=== PATIENT | male | born 1985 | race American Indian/Alaskan Native ===

== ENCOUNTER 2017-10-05 19:30 | Emergency (ER) | payer OTHER ==
[2017-10-05 20:12] VITALS: BP 132/87
[2017-10-05] MEDS ORDERED: MOTRIN PO ONE (20:13)
--- NOTE | 2017-10-05 21:41 | XRay Report ---
FINAL REPORT PROCEDURE: XR FOOT 3+V LT TECHNIQUE: LEFT foot radiographs, AP, lateral, and oblique views. CPT 86738 HISTORY: left foot redness and swelling COMPARISON: No prior studies are available for comparison. FINDINGS: Fracture (s) and/or Dislocation(s): None . Alignment: Normal . Joint space(s): Normal . Soft tissues: Mild degree soft tissue swelling. Bone mineralization: Is noted. Foreign bodies: None . Calcaneal spurring: None . IMPRESSION: No evidence of any bony or joint abnormality..
[2017-10-05] MEDS ORDERED: XYLOCAINE 1% MPF 5 mL ONE (23:51)
[2017-10-05] MEDS ORDERED: XYLOCAINE 1% MPF 5 mL INFILTRATI ONE (23:54)
[2017-10-05] MEDS ORDERED: BACTRIM DS PO ONE (23:59)
--- NOTE | 2017-10-06 00:07 | Emergency Department Report ---
HPI - General Chief Complaint: Extremity Injury, Lower Time Seen by Provider: 10/05/17 23:42 - HPI HPI: 32-year-old -Omani male presents to the emergency department with complaint of some redness, swelling and pain to the inside of the left foot. He also says he saw a small amount of purulent drainage. The patient has had this exact infection multiple times in the past. He has not taken anything for her symptoms prior presentation. Recent travel or sick contacts. His primary care physician is Dr. Jc Maier. ED Past Medical Hx - Past Medical History Hx Headaches / Migraines: Yes Additional medical history: Irregular Heartbeat - Surgical History Past Surgical History?: No - Social History Smoking Status: Current Every Day Smoker Substance Use Type: None - Medications Home Medications: Home Medications Medication Instructions Recorded Confirmed Last Taken Type Butalbit/Acetamin/Caff/Codeine 1 each PO Q6H PRN #20 capsule 04/26/13 Unknown Rx [Fioricet-Cod 73-902-10-30 Cap] HYDROcodone/ACETAMINOPHEN [Vader 1 each PO Q6H PRN #10 tablet 10/06/17 Unknown Rx 5-325 Tablet] Sulfamethoxazole/Trimethoprim 1 each PO BID #14 tablet 10/06/17 Unknown Rx [Bactrim DS TAB] ED Review of Systems ROS: Stated complaint: INSECT BITE LEFT FOOT Other details as noted in HPI Comment: All other systems reviewed and negative Constitutional: denies: chills, fever Eyes: denies: eye pain, eye discharge, vision change ENT: denies: ear pain, throat pain Respiratory: denies: cough, shortness of breath, wheezing Cardiovascular: denies: chest pain, palpitations Gastrointestinal: denies: abdominal pain, nausea, diarrhea Genitourinary: denies: urgency, dysuria Musculoskeletal: joint swelling, arthralgia Skin: change in color. denies: pruritus Neurological: denies: headache, weakness, paresthesias Physical Exam - Physical Exam Vital Signs: Vital Signs 10/05/17 10/05/17 19:46 20:06 Temperature 98.7 F 98.7 F Pulse Rate 97 H 97 H Respiratory 20 16 Rate Blood Pressure 132/83 132/87 O2 Sat by Pulse 98 98 Oximetry Physical Exam: GENERAL: The patient is well-developed well-nourished. HENT: Normocephalic. Atraumatic. Patient has moist mucous membranes. EYES: Extraocular motions are intact. NECK: Supple. No meningitic signs are noted. There is no adenopathy noted. CHEST/LUNGS: Clear to auscultation. There is no respiratory distress noted. HEART/CARDIOVASCULAR: Regular. There is no tachycardia. There is no murmur. SKIN: There was some erythema, mild localized swelling, and fluctuance to the medial midfoot, just anterior and inferior to the ankle. NEURO: The patient is awake, alert, and oriented. The patient is cooperative. The patient has no focal neurologic deficits. The patient has normal speech. MUSCULOSKELETAL: Tenderness to palpation to the left medial midfoot. There is no limitation range of motion. ED Course Vital Signs 10/05/17 10/05/17 19:46 20:06 Temperature 98.7 F 98.7 F Pulse Rate 97 H 97 H Respiratory 20 16 Rate Blood Pressure 132/83 132/87 O2 Sat by Pulse 98 98 Oximetry - I & D Left Foot Type of Procedure: Simple Site: left medial mid foot Blade Size: 11 I & D Procedure: betadine prep, sterile drapes applied, sterile dressing applied Progress: A 0.5 cm incision was made with 11 blade scalpel after 1 mL of 1% lidocaine without epinephrine was placed. There was no significant purulent discharge. There is a very mild amount of venous bleeding that stopped with pressure. The patient tolerated the procedure well. No obvious complications. ED Medical Decision Making - Radiology Data Radiology results: image reviewed interpreted by me: X-ray of the left foot does not show any fracture, dislocation or any signs of osteomyelitis. - Medical Decision Making Patient has some pain and swelling to the left medial foot. He definitely has some erythema with concern for cellulitis. There is some area of fluctuance so he had some local anesthesia with lidocaine and a small incision was made. There was not much purulent discharge and certainly not enough area for any packing. The area was cleaned with Betadine prior to this procedure. He will be placed on antibiotics and pain medication. He has good follow-up with a primary care physician but has also been given podiatry. He will return to ER with any worsening of symptoms or any acute distress. - Differential Diagnosis cellulitis, abscess, cyst, osteomyelitis Critical Care Time: No Critical care attestation.: If time is entered above; I have spent that time in minutes in the direct care of this critically ill patient, excluding procedure time. ED Disposition Clinical Impression: Foot abscess, left, Cellulitis of foot Disposition: TO HOME OR SELFCARE Is pt being admited?: No Condition: Stable Instructions: Cellulitis (ED), Abscess (ED) Additional Instructions: Please follow-up with your primary care physician in the next few days. I have also given referral for a local legislative correspondent, Dr. Bunch. Take the antibiotics as prescribed. Return to the emergency Department with any worsening of your symptoms or any acute distress. You have been prescribed a medication that is sedating and therefore should not be taken prior to driving, working, and responsible for children and in no way should be mixed with alcohol of any quantity. Prescriptions: HYDROcodone/ACETAMINOPHEN [Vader 5-325 Tablet] 1 each PO Q6H PRN #10 tablet PRN Reason: Pain , Severe (7-10) Sulfamethoxazole/Trimethoprim [Bactrim DS TAB] 1 each PO BID #14 tablet Referrals: PAMELA BUNCH DPM [Staff Physician] - SHAISTA JC MAIER MD [Staff Physician] - SHAISTA Forms: Work/School Release Form(ED) Time of Disposition: 00:07
== END 2017-10-06 00:10 | disposition home or self-care (01) ==
LOC: ED 19:30
DX: L02.612 Cutaneous abscess of left foot (principal); L03.116 Cellulitis of left lower limb; G43.909 Migraine, unspecified, not intractable, without status migrainosus; F17.200 Nicotine dependence, unspecified, uncomplicated

== ENCOUNTER 2017-12-05 13:46 | Emergency (ER) | payer SELFPAY ==
--- NOTE | 2017-12-05 20:00 | Emergency Department Report ---
ED General Adult HPI - General Chief complaint: Extremity Injury, Lower Stated complaint: FOOT INFECTION Time Seen by Provider: 12/05/17 19:41 Source: patient Mode of arrival: Ambulatory Limitations: No Limitations - History of Present Illness Initial comments: Patient 32-year-old female male who presents for recurrent left foot cellulitis states he worsen wet environment his foot keeps getting infected usually treated with Bactrim and hydrocodone this is a recurring concern the last 10 years patient states unable to see podiatry due to finances pain today is 3/10 to third and fourth toe left mild erythema sounds are distended per patient is no fevers no chills no broken skin no bleeding blisters or open sores Onset/Timin -: days(s) Location: lower extremity Radiation: non-radiation Severity scale (0 -10): 3 Quality: aching Consistency: intermittent Improves with: rest, other (abx) Worsens with: movement, other (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 ) Treatments Prior to Arrival: none - Related Data Previous Rx's Medication Instructions Recorded Last Taken Type Butalbit/Acetamin/Caff/Codeine 1 each PO Q6H PRN #20 capsule 04/26/13 Unknown Rx [Fioricet-Cod 66-863-31-30 Cap] HYDROcodone/ACETAMINOPHEN [Revelo 1 each PO Q6H PRN #10 tablet 10/06/17 Unknown Rx 5-325 Tablet] Sulfamethoxazole/Trimethoprim 1 each PO BID #14 tablet 10/06/17 Unknown Rx [Bactrim DS TAB] Ibuprofen 800 mg PO TID PRN #30 tablet 12/05/17 Unknown Rx Sulfamethoxazole/Trimethoprim 1 each PO BID #20 tablet 12/05/17 Unknown Rx [Bactrim DS TAB] Allergies Allergy/AdvReac Type Severity Reaction Status Date / Time No Known Allergies Allergy Verified 04/26/13 21:43 ED Review of Systems ROS: Stated complaint: FOOT INFECTION Other details as noted in HPI Constitutional: denies: chills, fever Eyes: denies: eye pain, eye discharge, vision change ENT: denies: ear pain, throat pain Respiratory: denies: cough, shortness of breath, wheezing Cardiovascular: denies: chest pain, palpitations Endocrine: no symptoms reported Gastrointestinal: denies: abdominal pain, nausea, diarrhea Genitourinary: denies: urgency, dysuria Musculoskeletal: denies: back pain, joint swelling, arthralgia Skin: other (cellulitis left foot ) Neurological: denies: headache, weakness, paresthesias Psychiatric: denies: anxiety, depression Hematological/Lymphatic: denies: easy bleeding, easy bruising ED Past Medical Hx - Past Medical History Previous Medical History?: Yes Hx Headaches / Migraines: Yes Additional medical history: Irregular Heartbeat - Surgical History Past Surgical History?: No - Social History Smoking Status: Current Every Day Smoker Substance Use Type: None - Medications Home Medications: Home Medications Medication Instructions Recorded Confirmed Last Taken Type Butalbit/Acetamin/Caff/Codeine 1 each PO Q6H PRN #20 capsule 04/26/13 Unknown Rx [Fioricet-Cod 99-845-75-30 Cap] HYDROcodone/ACETAMINOPHEN [Revelo 1 each PO Q6H PRN #10 tablet 10/06/17 Unknown Rx 5-325 Tablet] Sulfamethoxazole/Trimethoprim 1 each PO BID #14 tablet 10/06/17 Unknown Rx [Bactrim DS TAB] Ibuprofen 800 mg PO TID PRN #30 tablet 12/05/17 Unknown Rx Sulfamethoxazole/Trimethoprim 1 each PO BID #20 tablet 12/05/17 Unknown Rx [Bactrim DS TAB] ED Physical Exam - General Limitations: No Limitations General appearance: alert, in no apparent distress - Head Head exam: Present: atraumatic, normocephalic - Eye Eye exam: Present: normal appearance - ENT ENT exam: Present: mucous membranes moist - Neck Neck exam: Present: normal inspection - Respiratory Respiratory exam: Present: normal lung sounds bilaterally. Absent: respiratory distress - Cardiovascular Cardiovascular Exam: Present: regular rate - GI/Abdominal GI/Abdominal exam: Present: soft, normal bowel sounds. Absent: bruit, hernia - Rectal Rectal exam: Present: deferred - Extremities Exam Extremities exam: Present: normal inspection, full ROM, tenderness (left dorsal foot at 3&4toe ), normal capillary refill. Absent: pedal edema, joint swelling - Expanded Lower Extremity Exam Left Foot/Toe exam: Present: tenderness, erythema. Absent: tenderness at base of 5th metatarsal Neuro vascular tendon exam: Present: no vascular compromise. Absent: pulse deficit, abnormal cap refill, motor deficit, sensory deficit, tendon deficit, extremity cold to touch, pallor, abnormal 2-point discrimination, decreased fine /light touch, foot drop, peroneal nerve deficit, significant pain with passive ROM of distal joint Gait: Positive: observed and normal ED Course Vital Signs 12/05/17 14:26 Temperature 98 F Pulse Rate 76 Respiratory 18 Rate Blood Pressure 124/76 O2 Sat by Pulse 99 Oximetry ED Medical Decision Making - Medical Decision Making This is mild left foot cellulitis plan Bactrim DS ibuprofen 800 when necessary pain follow per or noelle cronin and as directed patient verbalized surgery she agreement and understanding was same patient will be discharged to home in stable condition at this time Critical care attestation.: If time is entered above; I have spent that time in minutes in the direct care of this critically ill patient, excluding procedure time. ED Disposition Clinical Impression: Cellulitis of foot Disposition: DC-01 TO HOME OR SELFCARE Is pt being admited?: No Does the pt Need Aspirin: No Condition: Good Instructions: Cellulitis (ED) Prescriptions: Ibuprofen 800 mg PO TID PRN #30 tablet PRN Reason: pain Sulfamethoxazole/Trimethoprim [Bactrim DS TAB] 1 each PO BID #20 tablet Referrals: KATHY LINDA [Primary Care Provider] - 3-5 Days [facility] [Outside] - 3-5 Days Forms: Work/School Release Form(ED) Time of Disposition: 20:04
[2017-12-05 20:15] VITALS: BP 128/72
== END 2017-12-05 20:15 | disposition home or self-care (01) ==
LOC: ED 13:46
DX: L03.116 Cellulitis of left lower limb (principal); G43.909 Migraine, unspecified, not intractable, without status migrainosus; F17.200 Nicotine dependence, unspecified, uncomplicated; Z79.899 Other long term (current) drug therapy
CPT/HCPCS: 99282

== ENCOUNTER 2019-02-11 17:47 | Emergency (ER) | payer SELFPAY ==
[2019-02-11 17:54] VITALS: BP 131/81
--- NOTE | 2019-02-11 18:21 | Emergency Department Report ---
Chief Complaint: Upper Respiratory Infection Stated Complaint: COLD SX Time Seen by Provider: 02/11/19 17:58 - HPI History of Present Illness: 33 y o male presents with URI sx x 2 days Patient states that he's been taken Motrin as needed for fever and pain. She denies fevers/nausea or vomiting, Abdominal pain chest pain shortness of breath. Patient states that he has eats at home that go to school and he has been around them. - ROS Review of Systems: As noted in HPI. All Systems review is negative - Exam Vital Signs: Vital Signs 02/11/19 17:53 Temperature 98.8 F Pulse Rate 92 H Respiratory 18 Rate Blood Pressure 131/81 O2 Sat by Pulse 95 Oximetry Physical Exam: GEN: Alert and oriented 3. Patient is in no acute unrestrained distress CHEST: RRR, CTAB, no use of accessory muscles, chest nontender to palpation MSE screening note: Focused history and physical exam performed. Due to findings the following was ordered: ED Medical Decision Making - Medical Decision Making 33-year-old male presents with upper respiratory infection. She had no fever in the ED. I discussed with the patient that this is not a medical emergency. I discussed the patient off the flu resolves with [id number] medications. Discussed with patient symptomatic relief with [id number] medications. Discussed continue Tylenol and Motrin as needed for fever and pain. Discussed increase fluids and diet intake. Discussed rest much needed. Discussed daily vitamin C for immune booster. Discussed follow-up with arrow point attacher in 3-5 days. Vital signs stable. Patient is in no acute distress ED Disposition for MSE Clinical Impression: Upper respiratory infection Disposition: MED SCREENING EXAM-LEFT Is pt being admited?: No Does the pt Need Aspirin: No Condition: Stable Instructions: Upper Respiratory Infection (ED), Viral Syndrome (ED) Additional Instructions: follow up with your pcp Referrals: [facility] [Outside] - 3-5 Days [facility] [Outside] - 3-5 Days Forms: Work/School Release Form(ED) Time of Disposition: 18:23
== END 2019-02-11 18:30 | disposition left against medical advice (07) ==
LOC: ED 17:47
DX: J06.9 Acute upper respiratory infection, unspecified (principal)
CPT/HCPCS: 99282

== ENCOUNTER 2019-07-09 09:42 | Emergency (ER) | payer SELFPAY ==
[2019-07-09 09:53] VITALS: BP 139/88
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
== END 2019-07-09 12:39 | disposition home or self-care (01) ==
LOC: ED 09:42
DX: S62.646A Nondisplaced fracture of proximal phalanx of right little finger, initial encounter for closed fracture (principal); L02.11 Cutaneous abscess of neck; L03.221 Cellulitis of neck; F17.200 Nicotine dependence, unspecified, uncomplicated; Z79.899 Other long term (current) drug therapy; X58.XXXA Exposure to other specified factors, initial encounter; Y93.89 Activity, other specified; Y92.89 Other specified places as the place of occurrence of the external cause; Y99.8 Other external cause status
CPT/HCPCS: 99283

== ENCOUNTER 2020-12-09 18:14 | Emergency (ER) | payer SELFPAY ==
[2020-12-09 20:50] VITALS: BP 139/96
--- NOTE | 2020-12-09 21:03 | Emergency Department Report ---
ED Extremity Problem HPI - General Chief complaint: Extremity Injury, Lower Stated complaint: LT FOOT INFECTION Time Seen by Provider: 12/09/20 20:51 Source: patient Mode of arrival: Ambulatory Limitations: No Limitations - History of Present Illness Initial comments: 40-year-old male presents to the ER today with complaints of foot infection. Patient states that symptoms started 2 days ago. Patient states that he has been having pain and swelling in between and around the base of his third and fourth toe of his left foot for the past 2 days. Patient states that he has a known history of athlete's foot, and has had infection similar to this in the past. Patient states that he has been trying multiple [id number] remedies for his athlete's foot as well as changing shoes and socks without much relief of his athlete's foot. 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 He denies any fever or chills since he developed infection. He reports no additional symptoms at this time. MD Complaint: joint swelling, joint paint, other (Foot infection ) -: days(s) (2) - Related Data Previous Rx's Medication Instructions Recorded Last Taken Type Butalbit/Acetamin/Caff/Codeine 1 each PO Q6H PRN #20 capsule 04/26/13 Unknown Rx [Fioricet-Cod [id number] Cap] Ibuprofen [Ibuprofen 800] 800 mg PO TID PRN #30 tablet 12/05/17 Unknown Rx Acetaminophen/Codeine [Tylenol 1 tab PO Q6H PRN #12 tab 12/09/20 Unknown Rx /Codeine # 3 tab] Clindamycin [Clindamycin CAP] 300 mg PO Q8H #21 cap 12/09/20 Unknown Rx Ibuprofen [Motrin] 800 mg PO Q8HR PRN #30 tablet 12/09/20 Unknown Rx Terbinafine (Nf) [LamiSIL] 250 mg PO QDAY #14 tablet 12/09/20 Unknown Rx Allergies Allergy/AdvReac Type Severity Reaction Status Date / Time No Known Allergies Allergy Verified 02/11/19 17:47 ED Review of Systems ROS: Stated complaint: LT FOOT INFECTION Other details as noted in HPI Comment: All other systems reviewed and negative Constitutional: denies: chills, fever Eyes: denies: eye pain, eye discharge, vision change ENT: denies: ear pain, throat pain, dental pain, hearing loss, epistaxis, congestion Respiratory: denies: cough, shortness of breath, SOB with exertion, SOB at rest, wheezing Cardiovascular: denies: chest pain, palpitations Musculoskeletal: joint swelling, arthralgia Skin: rash, change in color Neurological: denies: headache, weakness, numbness, paresthesias, confusion, abnormal gait, vertigo Psychiatric: denies: anxiety, depression, auditory hallucinations, visual hallucinations, homicidal thoughts, suicidal thoughts Hematological/Lymphatic: denies: easy bleeding, easy bruising ED Past Medical Hx - Past Medical History Previous Medical History?: Yes Hx Headaches / Migraines: Yes Additional medical history: Irregular Heartbeat - Surgical History Past Surgical History?: No - Social History Smoking Status: Current Every Day Smoker Substance Use Type: None - Medications Home Medications: Home Medications Medication Instructions Recorded Confirmed Last Taken Type Butalbit/Acetamin/Caff/Codeine 1 each PO Q6H PRN #20 capsule 04/26/13 Unknown Rx [Fioricet-Cod [id number] Cap] Ibuprofen [Ibuprofen 800] 800 mg PO TID PRN #30 tablet 12/05/17 Unknown Rx Acetaminophen/Codeine [Tylenol 1 tab PO Q6H PRN #12 tab 12/09/20 Unknown Rx /Codeine # 3 tab] Clindamycin [Clindamycin CAP] 300 mg PO Q8H #21 cap 12/09/20 Unknown Rx Ibuprofen [Motrin] 800 mg PO Q8HR PRN #30 tablet 12/09/20 Unknown Rx Terbinafine (Nf) [LamiSIL] 250 mg PO QDAY #14 tablet 12/09/20 Unknown Rx ED Physical Exam - General Limitations: No Limitations General appearance: alert, in no apparent distress - Head Head exam: Present: atraumatic, normocephalic, normal inspection - Eye Eye exam: Present: normal appearance, PERRL, EOMI Pupils: Present: normal accommodation - Neck Neck exam: Present: normal inspection, full ROM - Respiratory Respiratory exam: Present: normal lung sounds bilaterally. Absent: respiratory distress, wheezes, rales, rhonchi - Cardiovascular Cardiovascular Exam: Present: regular rate, normal rhythm, normal heart sounds - Expanded Lower Extremity Exam Left 1 - Mild swelling, with mild to moderate erythema noted around the base of the fourth and third with some erythema in the webspace of the third and fourth toe. There is no streaking. No significant lymphangitis. No cellulits or significant swelling to toes. There is a small abscess is already draining pus in the webspace of the third and the fourth toe. Dorsalis pedis pulse normal. Cap refill normal. - Neurological Exam Neurological exam: Present: alert, oriented X3, CN II-XII intact, normal gait - Psychiatric Psychiatric exam: Present: normal affect, normal mood - Skin Skin exam: Present: rash (Hyperpigmented, maculopapular, flaky rash scattered around the lateral and medial aspect of the left foot consistent with tinea pedis) ED Course Vital Signs 12/09/20 20:49 Temperature 98.7 F Pulse Rate 74 Respiratory 18 Rate Blood Pressure 139/96 [Right] O2 Sat by Pulse 100 Oximetry Critical care attestation.: If time is entered above; I have spent that time in minutes in the direct care of this critically ill patient, excluding procedure time. ED Disposition Clinical Impression: Cellulitis of foot, Abscess of foot, Athlete's foot Disposition: 01 HOME / SELF CARE / HOMELESS Is pt being admited?: No Does the pt Need Aspirin: No Condition: Stable Instructions: Athlete's Foot, [id number], Skin Abscess, [id number], Cellulitis, Adult, Idiu-zz-[id number] Additional Instructions: I recommend that you take the clindamycin as prescribed to completion. Take the Lamisil as prescribed for 2 weeks but it is important that you follow-up with the [employer] truck driver listed on your discharge instructions for continued treatment of your athlete's foot. Take the ibuprofen and the Tylenol threes as prescribed for pain. Keep the area clean with soap and water, do not use peroxide or alcohol, drive foot well after each cleaning and I recommend that you put gauze in between the third and fourth toe as instructed. Return to the ER if symptoms worsens or changes in any way. Prescriptions: Clindamycin [Clindamycin CAP] 300 mg PO Q8H #21 cap Terbinafine (Nf) [LamiSIL] 250 mg PO QDAY #14 tablet Ibuprofen [Motrin] 800 mg PO Q8HR PRN #30 tablet PRN Reason: Pain Acetaminophen/Codeine [Tylenol /Codeine # 3 tab] 1 tab PO Q6H PRN #12 tab PRN Reason: Pain Referrals: PAMELA ESPARZA DPM [Staff Physician] - 3-5 Days (Area Director Of Home Health Sales ) Forms: Work/School Release Form(ED) Time of Disposition: 21:10
== END 2020-12-09 21:49 | disposition home or self-care (01) ==
LOC: ED 18:14
DX: L03.032 Cellulitis of left toe (principal); L02.612 Cutaneous abscess of left foot; B35.3 Tinea pedis; G43.909 Migraine, unspecified, not intractable, without status migrainosus; I49.8 Other specified cardiac arrhythmias; F17.200 Nicotine dependence, unspecified, uncomplicated
CPT/HCPCS: 99281

== ENCOUNTER 2021-05-08 02:31 | Emergency (ER) | payer SELFPAY | END 2021-05-08 05:00 | disposition left against medical advice (07) | LOC: ED 02:31 | DX: R51.9 Headache, unspecified (principal); Z53.21 Procedure and treatment not carried out due to patient leaving prior to being seen by health care provider ==

== ENCOUNTER 2021-05-08 12:06 | Emergency (ER) | payer SELFPAY ==
[2021-05-08 15:24] VITALS: BP 151/99
[2021-05-08] MEDS ORDERED: dexAMETHasone 20 MG/5 ML VIAL IV ONE (16:10)
[2021-05-08] MEDS ORDERED: diphenhydrAMINE 50 MG/ML VIAL IV ONE (16:10)
[2021-05-08] MEDS ORDERED: SODIUM CHLORIDE 0.9% 1000 ML 1,000 ML IV ONE (16:10)
[2021-05-08] MEDS ORDERED: METOCLOPRAMIDE 10 MG/2 ML INJ IV ONE (16:10)
[2021-05-08] MEDS ORDERED: KETOROLAC 30 MG/1 ML INJ IV ONE (16:10)
--- NOTE | 2021-05-08 16:25 | Emergency Department Report ---
ED Headache HPI - General Chief Complaint: Headache Stated Complaint: HEAD PAIN Time Seen by Provider: 05/08/21 16:10 - History of Present Illness Initial Comments: Patient presents with a bitemporal and frontal headache for the last 4 days. It started 4 days ago and gradually has worsened. There was no trauma associated with this. There is no fever. He has no stiff neck. Patient states that he is taking both Aleve and ibuprofen without symptomatic improvement. He does report that he gets frequent headaches, but they usually are not 4 days duration. This is described as a throbbing and pounding sensation. This is worse with light and sound. He has no nausea or vomiting. There is no prior diagnosis of migraine headache. This is not unilateral. It was not thunderclap. It was not a maximum intensity at the time of onset. He has no fevers or chills. Allergies/Adverse Reactions: Allergies No Known Allergies Allergy (Verified 02/11/19 17:47) Home Medications: Ambulatory Orders Ibuprofen [Motrin 800 MG tab] 800 mg PO Q8HR PRN #30 tablet 12/09/20 Terbinafine (Nf) [LamiSIL] 250 mg PO QDAY #14 tablet 12/09/20 Butalbit/Acetamin/Caff/Codeine [Fioricet/Codeine [id number]] 1 each PO Q6H PRN #20 capsule 05/08/21 ED Review of Systems ROS: Stated complaint: HEAD PAIN Other details as noted in HPI Comment: All other systems reviewed and negative Constitutional: denies: fever Eyes: denies: vision change ENT: denies: throat pain Respiratory: denies: cough Cardiovascular: denies: chest pain Endocrine: denies: unexplained weight loss Gastrointestinal: denies: abdominal pain Genitourinary: denies: dysuria Musculoskeletal: denies: back pain Skin: denies: rash Neurological: as per HPI Hematological/Lymphatic: denies: easy bruising ED Past Medical Hx - Past Medical History Hx Headaches / Migraines: Yes Additional medical history: Irregular Heartbeat - Family History Family history: other (Negative for aneurysm) - Social History Smoking Status: Current Every Day Smoker (We discussed tobacco cessation x3 minutes) Substance Use Type: None - Medications Home Medications: Home Medications Medication Instructions Recorded Confirmed Last Taken Type Ibuprofen [Motrin 800 MG tab] 800 mg PO Q8HR PRN #30 tablet 12/09/20 Unknown Rx Terbinafine (Nf) [LamiSIL] 250 mg PO QDAY #14 tablet 12/09/20 Unknown Rx Butalbit/Acetamin/Caff/Codeine 1 each PO Q6H PRN #20 capsule 05/08/21 Unknown Rx [Fioricet/Codeine [id number]] ED Physical Exam - General Limitations: No Limitations, Other (Pulse ox noted and normal) General appearance: alert, in no apparent distress - Head Head exam: Present: atraumatic, normocephalic - Eye Eye exam: Present: normal appearance, PERRL, EOMI. Absent: scleral icterus - ENT ENT exam: Present: normal orophraynx, normal external ear exam - Neck Neck exam: Present: normal inspection. Absent: tenderness, meningismus - Respiratory Respiratory exam: Present: normal lung sounds bilaterally. Absent: respiratory distress - Cardiovascular Cardiovascular Exam: Present: regular rate, normal rhythm - GI/Abdominal GI/Abdominal exam: Present: soft. Absent: distended, tenderness - Extremities Exam Extremities exam: Present: normal capillary refill. Absent: calf tenderness - Back Exam Back exam: Absent: CVA tenderness (R), CVA tenderness (L) - Neurological Exam Neurological exam: Present: alert, oriented X3, CN II-XII intact, normal gait, reflexes normal, other (No pronator drift or dysdiadochokinesia.). Absent: motor sensory deficit - Psychiatric Psychiatric exam: Present: normal affect, normal mood - Skin Skin exam: Present: warm, dry ED Course Vital Signs 05/08/21 15:18 Temperature 98.4 F Pulse Rate 71 Respiratory 18 Rate Blood Pressure 151/99 [Right] O2 Sat by Pulse 97 Oximetry - Reevaluation(s) Reevaluation #1: 05/08/21 16:23 IV medications were ordered. Old records noted. Reevaluation #2: 05/08/21 17:34 Headache resolved. Patient was discharged. ED Medical Decision Making - Medical Decision Making Patient presented with nontraumatic headache of 4 days duration. Symptomatology did not suggest subarachnoid hemorrhage. It was not thunderclap in nature or maximum intensity at the time of onset. He certainly had no meningeal signs. I was not concerned for infectious process. There is no trauma to suggest subdural or epidural hematomas. Patient did not have any neurologic finding or vomiting suggestive of increased ICP from a tumor or mass lesion. Patient was referred to her PCP for recheck. Critical Care Time: No Critical care attestation.: If time is entered above; I have spent that time in minutes in the direct care of this critically ill patient, excluding procedure time. ED Disposition Clinical Impression: Generalized headache Disposition: HOME / SELF CARE / HOMELESS Is pt being admited?: No Condition: Stable Instructions: Form - Headache Record Additional Instructions: Drink plenty water. Return for problems. Try caffeine when you get a headache like this. Follow-up with your family doctor or the referral physician for recheck. Prescriptions: Butalbit/Acetamin/Caff/Codeine [Fioricet/Codeine [id number]] 1 each PO Q6H PRN #20 capsule PRN Reason: Headache Referrals: PRIMARY CAREMD [Referring] - 3-5 Days WARD PRASAD MD [Staff Physician] - 3-5 Days
== END 2021-05-08 18:39 | disposition home or self-care (01) ==
LOC: ED 12:06
DX: G43.909 Migraine, unspecified, not intractable, without status migrainosus (principal); F17.200 Nicotine dependence, unspecified, uncomplicated
CPT/HCPCS: 96361; 96374; 96375; 99282; J1100; J1200; J1885; J2765; J7030; Q0162